=== PATIENT | male | born 1935 | race Caucasian/White ===

== ENCOUNTER 2019-08-26 09:37 | Outpatient (CLI) | payer MEDICARE, SELFPAY ==
--- NOTE | 2019-08-26 11:00 | NEURO_ITS ---
Patient Number: [id number] Impression: # Complains of severe numbness of right hand with obvious wasting of muscles. # Right severe Carpal Tunnel Syndrome. # Abnormal needle/EMG exam. 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 Nerve Conduction Studies Anti Sensory Summary Table Stim Site NR Peak (ms) P-T Amp (?V) Site1 Site2 Delta-P (ms) Dist (cm) Saúl (m/s) Left Median Anti Sensory (2-3nd Digit) Wrist 3.9 32.1 Wrist 2-3nd Digit 3.9 14.0 36 Wrist 3.5 30.7 Wrist 2-3nd Digit 3.9 14.0 36 Right Median Anti Sensory (2-3nd Digit) Wrist 6.4 33.9 Wrist 2-3nd Digit 6.4 14.0 22 Wrist 7.1 31.4 Wrist 2-3nd Digit 6.4 14.0 22 Left Radial Anti Sensory (Base 1st Digit) Wrist 2.7 24.0 Wrist Base 1st Digit 2.7 0.0 Right Radial Anti Sensory (Base 1st Digit) Wrist 3.2 25.4 Wrist Base 1st Digit 3.2 0.0 Left Ulnar Anti Sensory (5th Digit) Wrist 3.0 32.7 Wrist 5th Digit 3.0 14.0 47 Right Ulnar Anti Sensory (5th Digit) Wrist 3.0 6.5 Wrist 5th Digit 3.0 14.0 47 Motor Summary Table Stim Site NR Onset (ms) O-P Amp (mV) Site1 Site2 Delta-0 (ms) Dist (cm) Saúl (m/s) Left Median Motor (Abd Poll Brev) Wrist 3.9 2.2 Elbow Wrist 5.2 30.0 58 Elbow 9.1 2.2 Right Median Motor (Abd Poll Brev) Wrist 9.1 0.1 Elbow Wrist 5.7 27.0 47 Elbow 14.8 0.4 Left Ulnar Motor (Abd Dig Minimi) Wrist 3.0 4.0 A Elbow Wrist 5.6 30.0 54 A Elbow 8.6 3.7 Right Ulnar Motor (Abd Dig Minimi) Wrist 3.4 3.7 A Elbow Wrist 6.1 28.0 46 A Elbow 9.5 2.7 F Wave Studies NR F-Lat (ms) L-R F-Lat (ms) Left Median (Mrkrs) (Abd Poll Brev) 30.53 6.08 Right Median (Mrkrs) (Abd Poll Brev) 36.61 6.08 Left Ulnar (Mrkrs) (Abd Dig Min) 31.05 3.31 Right Ulnar (Mrkrs) (Abd Dig Min) 34.36 3.31 EMG Side Muscle Nerve Root Ins Act Fibs Amp Dur Recrt Comment Right 1stDorInt Ulnar C8-T1 Nml Nml Decr >12ms Reduced Right Ext Indicis Radial (Post Int) C7-8 Nml Nml Nml Nml Nml Right Ext Digitorum Radial (Post Int) C7-8 Nml Nml Nml Nml Nml Right BrachioRad Radial C5-6 Nml Nml Nml Nml Nml Right PronatorTeres Median C6-7 Nml Nml Nml Nml Nml Right Abd Poll Brev Median C8-T1 Nml 3+ Decr >12ms Reduced Left 1stDorInt Ulnar C8-T1 Nml Nml Decr >12ms Nml Left Ext Indicis Radial (Post Int) C7-8 Nml Nml Nml Nml Nml Left Ext Digitorum Radial (Post Int) C7-8 Nml Nml Nml Nml Nml Left BrachioRad Radial C5-6 Nml Nml Nml Nml Nml Left PronatorTeres Median C6-7 Nml Nml Nml Nml Nml Left Abd Poll Brev Median C8-T1 Nml Nml Nml Nml Nml Right ABD Dig Min Ulnar C8-T1 Nml Nml Decr >12ms Reduced Left ABD Dig Min Ulnar C8-T1 Nml Nml Nml Nml Nml MTDD
== END 2019-08-26 09:38 | disposition home or self-care (01) ==
PROVIDERS: PCP Internal Medicine; Visit Provider Physician Assistant Surgical
DX: M25.531 Pain in right wrist (principal); G56.01 Carpal tunnel syndrome, right upper limb; R94.131 Abnormal electromyogram [EMG]; G56.21 Lesion of ulnar nerve, right upper limb
CPT/HCPCS: 95886; 95911

== ENCOUNTER → 2019-10-13 10:02 | Outpatient (REF) | payer MEDICARE, SELFPAY | LOC: ANHLAB 10:02 | PROVIDERS: PCP Internal Medicine; Visit Provider Nurse Practitioner | DX: L57.0 Actinic keratosis (principal) | CPT/HCPCS: 88305 ==

== ENCOUNTER 2020-12-02 13:48 | Inpatient (IN) | payer MEDICARE, SELFPAY ==
[2020-12-02] VITALS (8 sets, daily range): BP systolic 128–170; BP diastolic 62–94; PULSE 60–75; RESP 16–20; TEMP 36.1–36.6; O2SAT 95–99; BMI 26.6
--- NOTE | ~2020-12-02 | US_ITS ---
US abdomen limited DATE: 12/02/2020 18:37 INDICATION: Right abdominal pain TECHNIQUE: Real-time imaging of liver, pancreas, gallbladder areas COMPARISON: 12/02/[address] abdomen pelvis FINDINGS: There are multiple stones in the dependent aspect of the gallbladder with associated shadow ing. There is mild gallbladder wall thickening. Positive sonographic Culver's sign. The common bile duct measures 3.8 mm, normal. No hepatic or pancreatic space occupying mass lesion is evident. IMPRESSION: Cholelithiasis, gallbladder wall thickening and positive sonographic Culver's sign, sugge sting acute cholecystitis Reviewed, dictated and finalized at [facility]. Reviewed, dictated and finalized at [facility]. IMPRESSION: Cholelithiasis, gallbladder wall thickening and positive sonographi c Culver's sign, suggesting acute cholecystitis
--- NOTE | ~2020-12-02 | CT_ITS ---
EXAMINATION: CT abdomen pelvis wo con DATE: 12/02/2020 17:32 INDICATION: Right flank pain. Nephrolithiasis. TECHNIQUE: Computed tomography (CT) of the abdomen and pelvis was performed without intravenous contr ast. Automated exposure control and iterative reconstruction technique were employed. The dose-length product was 284.42 mGy-cm. COMPARISON: 07/08/2005 FINDINGS: Lung bases are clear. Borderline heart size. Coronary artery disease with change of prior median ster notomy and coronary artery bypass grafting. No pericardial or pleural effusion. Multiple tiny gallstones layering in the dependent aspect of the normal-appearing gallbladder with no dilation, evident wall thickening or inflammatory stranding surrounding the fundus of the gallbladde r to suggest acute cholecystitis. There is however some inflammatory stranding at the naveen hepatis a nd about the head of the pancreas. Tiny calcification at the right naveen hepatis which could represen t either atherosclerotic calcific lesion or stone within the right hepatic duct. No gallstones eviden t within the common bile duct. Liver, spleen and bilateral adrenal glands are normal. Bilateral nephrolithiasis with 5 1-2 mm stones scattered throughout the left kidney and single 1 mm s tone at the lower pole of the right kidney. No stones along the bilateral ureters or in the partially decompressed bladder. No hydronephrosis. 10 mm left renal cyst. Extensive colonic diverticulosis without adjacent inflammatory change to suggest diverticulitis. Smal l bowel is normal with no obstruction. The appendix is not visualized. No pericecal inflammatory kay ge to suggest acute appendicitis. Prostatomegaly. No free intraperitoneal gas or fluid. No pathologic ally enlarged abdominal or pelvic lymphadenopathy. There is extensive calcified atherosclerosis of th e aorta and many of the other arteries. Thoracolumbar spondylosis with mild to moderate multilevel de generative disc disease and moderate to severe lower lumbar predominant facet osteoarthritis. There i s also moderate bilateral hip osteoarthritis. IMPRESSION: 1. Cholelithiasis with inflammatory stranding in the region of the naveen hepatis and about the head o f the pancreas. Differential includes acute pancreatitis, acute cholecystitis, biliary colic or duode nitis. Correlate with liver function tests and amylase and lipase levels. 2. Bilateral nonobstructing nephrolithiasis. No ureteral stones or hydronephrosis. 3. Extensive diverticulosis. 4. Mild cardiomegaly. 5. Prostatomegaly. Reviewed, dictated and finalized at [facility]. IMPRESSION: 1. Cholelithiasis with inflammatory stranding in the region of the naveen hepati s and about the head of the pancreas. Differential includes acute pancreatitis, acute cholecystitis, biliary colic or duodenitis. Correlate with liver functio n tests and amylase and lipase levels. 2. Bilateral nonobstructing nephrolithiasis. No ureteral stones or hydronephros is. 3. Extensive diverticulosis. 4. Mild cardiomegaly. 5. Prostatomegaly.
[2020-12-02 14:30] LABS: Basophils Absolute Auto 0.1 K/mm3 (0.0-0.1); Basophils Percent Auto 0.7 % (0.2-1.2); Eosinophils Absolute Auto 0.2 K/mm3 (0-0.3); Eosinophils Percent Auto 2.5 % (0-4.4); Hematocrit 46.6 % (42.0-52.0); Hemoglobin 15.1 g/dL (14.0-18.0); Immature Granulocyte Absolute 0.06 K/mm3 (0.00-0.031); Immature Granulocyte Percent A 0.8 % (0-0.5); Immature Platelet Fraction Pct 4.9 % (0.9-11.2); Lymphocytes Absolute Auto 1.64 K/mm3 (0.9-3.2); Lymphocytes Percent Auto 22.7 % (18.3-44.2); Mean Corpuscular HGB Conc 32.4 g/dl (32-36); Mean Corpuscular Hemoglobin 30.3 pg (26-34); Mean Corpuscular Volume 93.6 fl (80-100); Mean Platelet Volume 10.2 fl (7.4-10.4); Monocytes Absolute Auto 0.6 K/mm3 (0.1-0.6); Monocytes Percent Auto 8.3 % (2.6-8.5); Neutrophils Absolute Auto 4.7 K/mm3 (1.3-6.7); Platelet Count Result 144 k/mm3 (150-375); Red Blood Count 4.98 M/mm3 (4.6-6.20); Red Cell Distribution Width 15.2 % (11.5-14.5); White Blood Count 7.2 K/mm3 (4.5-10.0)
[2020-12-02 14:34] LABS: Anion Gap 7 mmol/L (8-16); Blood Urea Nitrogen 30 mg/dL (9-20); Calcium 9.4 mg/dL (8.4-10.2); Carbon Dioxide 26 mmol/L (22-30); Chloride 106 mmol/L (98-107); Estimated CRCL calculation 32 ml/min; Estimated Glomerular Filt Rate 48; Glucose 87 mg/dL (65-110); Potassium 4.6 mmol/L (3.4-5.0); Sodium 139 mmol/L (137-145)
--- NOTE | 2020-12-02 16:20 | ED.MALEGU ---
HPI - Male Genitourinary General Chief complaint: Urogenital-Male <Sylwia Anderson MD - Last Filed: 12/02/20 18:23> Stated complaint: kideny stones <Sylwia Anderson MD - Last Filed: 12/02/20 18:23> Time Seen by Provider: 12/02/20 16:02 <Sylwia Anderson MD - Last Filed: 12/02/20 18:23> Source: patient <Sylwia Anderson MD - Last Filed: 12/02/20 18:23> Mode of arrival: ambulatory <Sylwia Anderson MD - Last Filed: 12/02/20 18:23> Limitations: no limitations <Sylwia Anderson MD - Last Filed: 12/02/20 18:23> History of Present Illness HPI Narrative: Patient is an 85-year-old male with a history of hypertension, coronary artery disease, CABG, nephrolithiasis who presents for evaluation of right flank pain. At the time of my assessment, patient currently has no pain. He does report the pain has been quite constant over the past 4 days located in the right flank. No dysuria or hematuria. No radiation into the chest. No associated fever, chills, nausea, vomiting, chest pain or shortness of breath. Patient states the pain is sharp, stabbing in nature. No associated rash in that area. At this time, patient currently feels quite well. He denies any symptoms. Patient was at home with his . No recent heavy bending or lifting. <Sylwia Anderson MD - Last Filed: 12/02/20 18:23> Related Data Home medications: Home Medications Medication Instructions Recorded Confirmed apixaban 5 mg tablet 5 mg PO BID 08/20/19 lisinopril 5 mg tablet 5 mg PO DAILY 08/20/19 <Sylwia Anderson MD - Last Filed: 12/02/20 18:23> Allergies/Adverse reactions: Allergies Allergy/AdvReac Type Severity Reaction Status Date / Time No Known Allergies Allergy Unknown Verified 12/02/20 15:52 <Sylwia Anderson MD - Last Filed: 12/02/20 18:23> Review of Systems Review of Systems: CONSTITUTIONAL: Denies fever, chills, or sweats. EYES: Denies visual changes, redness, or discharge. ENT: Denies rhinorrhea, congestion, sore throat, or otalgia. CARDIOVASCULAR: Denies chest pain, palpitations, or edema. RESPIRATORY: Denies cough or dyspnea. GASTROINTESTINAL: Denies abdominal pain, nausea, vomiting, or diarrhea. GENITOURINARY: Denies dysuria or hematuria. SKIN: Denies rash or itching. MUSCULOSKELETAL: Denies back pain, flank pain resolved, joint pain, or myalgia. NEUROLOGIC: Denies headache, numbness, or weakness. <Sylwia Anderson MD - Last Filed: 12/02/20 18:23> [facility] Past Medical History Medical History: Medical History (Updated 12/02/20 @ 20:04 by Juve Arroyo MD) History of blood clots History of kidney stones Knee pain Skin neoplasm <Sylwia Anderson MD - Last Filed: 12/02/20 18:23> Surgical History Surgical History: Surgical History (Updated 12/02/20 @ 16:54 by Sylwia Anderson MD) History of back surgery History of shoulder surgery <Sylwia Anderson MD - Last Filed: 12/02/20 18:23> Social History Social History: Social History (Updated 12/02/20 @ 16:54 by Sylwia Anderson MD) Smoking status: Never smoker Alcohol intake: never Substance use: never Living arrangements: with family Gender identity (if verbalized by the patient): Male <Sylwia Anderson MD - Last Filed: 12/02/20 18:23> Exam Narrative: GENERAL: Awake, alert, conversant HEAD: Normocephalic, atraumatic. EYES: PERRLA and EOMI. ENT: Nares clear, no rhinorrhea or epistaxis. Mucous membranes moist. NECK: Supple. CHEST: No respiratory distress, breathing even and non labored HEART: Regular rate, sinus rhythm ABDOMEN:Non distended, non tender, no flank pain on exam EXTREMITIES: Normal range of motion. No edema. SKIN: Warm, dry, no rash. NEURO:No focal deficits. Alert and oriented x3 <Sylwia Anderson MD - Last Filed: 12/02/20 18:23> Course Course Emergency Course: Reviewed CT, and ultrasound consistent with acute cholecystitis Patient has only mild rig
[2020-12-02 17:21] LABS: Add Urine Microscopic? YES; Appearance Urine Clear (Clear); Bilirubin Urine Negative (Negative); Blood Urine Negative (Negative); Color Urine Yellow (Yellow); Glucose Urine UA Negative (Negative); Ketones Urine Negative (Negative); Leukocyte Esterase Ur Negative LEU/UL (Negative); Nitrate Urine Negative (Negative); Protein Urine Negative (Negative); Specific Grav Ur 1.025 (1.001-1.035); WBC Urine 0-3 /hpf
[2020-12-02 18:22] LABS: Alanine Aminotransferase 28 U/L (4-50); Albumin Level 4.1 g/dL (3.5-5.1); Alkaline Phosphatase 81 U/L (38-126); Aspartate Amino Transferase 33 U/L (17-59)
--- NOTE | 2020-12-02 19:34 | PC.NURSE ---
Pt to ED c/o right flank pain x approx. 3-4 days. denies urinary s/s. denies pain at present. call light in reach.
[2020-12-02 19:49] LABS: Lipase 70 U/L (23-300)
--- NOTE | 2020-12-02 22:26 | ADMGEN ---
This patient, Russ Kevin, was admitted to Medical Room [facility]- @ 4155. Patient/family oriented to hospital policies and general routines including ID bracelet, bed and alarms, visiting hours, pain management, procedures, bathroom and other care routines, personal items, smoking policy, room service/diet, and visiting hours. Information on how to activate the Rapid Response Team has been discussed. Patient/Family are encouraged to report perceived risks to care and to ask questions if they do not understand what they are told or what they should do.
[2020-12-02] MEDS: LACTATED RINGERS 1,000 ML 125 ML IV CONT (23:06)
--- NOTE | 2020-12-03 02:00 | PM.IMHP ---
H&P: HPI History of Present Illness Date/Time: 12/03/20 02:00 Chief Complaint: Abdominal pain Narrative: This is an 85-year-old male with past medical history significant for hypertension, atrial fibrillation, dyslipidemia. Patient presented to the emergency room due to abdominal pain had some nausea but no vomiting this has been going on for the last 3-4 days he denies any fevers any chills any rigors any diarrhea. He has been in his usual state of health up until this he denies any cough any sputum production shortness of breath leg swelling chest pain palpitations heartburn pain or burning with urination. Patient states that initially he thought he was passing a renal calculus. Pain is localized to the epigastric area also has had poor appetite Preliminary workup was significant for CT of abdomen and pelvis with cholelithiasis and right upper quadrant ultrasound shows positive more face on a graphic is signed and inflammatory signs. Patient has been admitted for further treatment management and evaluation. Review of Systems Review of Systems: Abdominal pain and nausea Constitutional: Constitutional: Denies chills, Denies fever(s) and Denies malaise Eyes: Eyes: Denies change in vision ENT: Denies dysphagia, Denies nasal congestion, Denies nasal discharge, Denies nasal obstruction and Denies odynophagia Cardiovascular: Cardiovascular: Denies irregular heart rhythm, Denies radiating jaw, neck or arm pain, Denies palpitations, Denies dyspnea on exertion and Denies orthopnea Respiratory: Respiratory: Denies cough and Denies dyspnea Gastrointestinal: Gastrointestinal: Reports abdominal pain, Denies diarrhea, Reports nausea and Denies vomiting Genitourinary: Genitourinary: Reports no additional male genitourinary complaints Musculoskeletal: Musculoskeletal: Reports no additional musculoskeletal complaints Integumentary/Breasts: Skin/Breast: Reports system reviewed and no additional complaints, except as docu Neurologic: Reports system reviewed and no additional complaints, except as documented Psychiatric: Psychiatric: Reports no additional psychiatric complaints Endocrine: Endocrine: Reports no additional endocrine complaints Hematologic/Lymphatic: Hematologic/Lymphatic: Reports no additional hematologic/lymphatic complaints Allergic/Immunologic: Allergic/Immunologic: Reports no additional allergic/immunologic complaints [facility] Past Medical History Medical History (Updated 12/03/20 @ 02:09 by Jeanie Penaloza MD) History of blood clots History of kidney stones Knee pain Skin neoplasm Surgical History Surgical History (Updated 12/02/20 @ 16:54 by Sylwia Anderson MD) History of back surgery History of shoulder surgery Family History Family History (Updated 12/02/20 @ 22:50 by Kimberly Portillo RN) Mother Diabetes mellitus Acute myocardial infarction Father Diabetes mellitus Acute myocardial infarction Social History Social History (Updated 12/02/20 @ 16:54 by Sylwia Anderson MD) Smoking status: Never smoker Alcohol intake: never Substance use: never Substance use type: does not use Living arrangements: with family Gender identity (if verbalized by the patient): Male Spiritual care concerns: No Meds Home Medications and Allergies Home Medications Medication Instructions Recorded Confirmed Type acetaminophen [Tylenol] 650 mg PO PRN PRN 12/02/20 12/02/20 History apixaban [Eliquis] 5 mg PO BID 12/02/20 12/02/20 History celecoxib 200 mg PO DAILY 12/02/20 12/02/20 History lisinopril 5 mg PO DAILY 12/02/20 12/02/20 History metoprolol succinate 25 mg PO DAILY 12/02/20 12/02/20 History pramipexole 0.5 mg PO QPM 12/02/20 12/02/20 History prednisolone acetate 1 drp EACH EYE BID 12/02/20 12/02/20 History simvastatin 5 mg PO QPM 12/02/20 12/02/20 History Allergies Allergy/AdvReac Type Severity Reaction Status Date / Time No Known Allergies Allergy Unknown Verified 12/02/20 2
--- NOTE | 2020-12-03 02:09 | ECG_ITS ---
Measurements Intervals [place] Rate: 65 P: RI: 0 QRS: 24 QRSD: 128 T: -7 QT: 425 QTc: 445 Interpretive Statements ATRIAL FIBRILLATION RIGHT BUNDLE BRANCH BLOCK CANNOT RULE OUT SEPTAL INFARCT, AGE INDETERMINATE ABNORMAL ECG Electronically Signed On 12-03-2020 10:09:22 CDT by Rafal Del Cid D.O.
[2020-12-03] MEDS: MORPHINE SULFATE (*CRX) 4 MG/ML INJ IV PUSH (05:01)
[2020-12-03 06:00] VITALS: BP 135/77; PULSE 72; RESP 16; TEMP 37.1; O2SAT 98
[2020-12-03 06:13] LABS: Basophils Absolute Auto 0.1 K/mm3 (0.0-0.1); Basophils Percent Auto 0.6 % (0.2-1.2); Eosinophils Absolute Auto 0.2 K/mm3 (0-0.3); Eosinophils Percent Auto 2.6 % (0-4.4); Hematocrit 45.2 % (42.0-52.0); Hemoglobin 14.8 g/dL (14.0-18.0); Immature Granulocyte Absolute 0.06 K/mm3 (0.00-0.031); Immature Granulocyte Percent A 0.7 % (0-0.5); Immature Platelet Fraction Pct 4.5 % (0.9-11.2); Lymphocytes Absolute Auto 1.66 K/mm3 (0.9-3.2); Lymphocytes Percent Auto 20.2 % (18.3-44.2); Mean Corpuscular HGB Conc 32.7 g/dl (32-36); Mean Corpuscular Hemoglobin 29.4 pg (26-34); Mean Corpuscular Volume 89.7 fl (80-100); Mean Platelet Volume 10.7 fl (7.4-10.4); Monocytes Absolute Auto 0.7 K/mm3 (0.1-0.6); Monocytes Percent Auto 8.4 % (2.6-8.5); Neutrophils Absolute Auto 5.5 K/mm3 (1.3-6.7); Neutrophils Percent Auto 67.5 % (45.5-73.1); Platelet Count Result 128 k/mm3 (150-375); Red Blood Count 5.04 M/mm3 (4.6-6.20); Red Cell Distribution Width 14.9 % (11.5-14.5); White Blood Count 8.2 K/mm3 (4.5-10.0)
[2020-12-03 06:35] LABS: Alanine Aminotransferase 24 U/L (4-50); Albumin Level 3.7 g/dL (3.5-5.1); Alkaline Phosphatase 70 U/L (38-126); Anion Gap 9 mmol/L (8-16); Aspartate Amino Transferase 28 U/L (17-59); Bilirubin,Total 2.2 mg/dL (0.2-1.3); Blood Urea Nitrogen 24 mg/dL (9-20); Calcium 8.9 mg/dL (8.4-10.2); Carbon Dioxide 21 mmol/L (22-30); Chloride 104 mmol/L (98-107); Estimated CRCL calculation 37 ml/min; Estimated Glomerular Filt Rate 57; Glucose 66 mg/dL (65-110); Lipase 96 U/L (23-300); Potassium 4.1 mmol/L (3.4-5.0); Sodium 134 mmol/L (137-145)
[2020-12-03 08:15] VITALS: PULSE 72
[2020-12-03] MEDS: lisinopriL 5 MG TABLET PO (08:15)
[2020-12-03] MEDS: METOPROLOL SUCCINATE EXT REL 25 MG TABCR PO (08:15)
[2020-12-03] MEDS: prednisoLONE ACETATE 1% OPHTH 5 ML 1 DROP EACH EYE ×2 (08:15→17:03)
[2020-12-03] MEDS: LACTATED RINGERS 1,000 ML 125 ML IV CONT (08:22)
--- NOTE | 2020-12-03 09:24 | PM.IMPN ---
Progress Note: A&P Assessment and Plan (1) Acute cholecystitis: Code(s): K81.0 - Acute cholecystitis Status: Acute Assessment and Plan: Presented with right-sided flank and back pain. CT abdomen/pelvis showed cholelithiasis with inflammatory stranding concerning for acute cholecystitis. Abdominal ultrasound also with cholelithiasis, gallbladder wall thickening, and positive sonographic Culver sign suggestive of acute cholecystitis. Total bilirubin slightly elevated today at 2.2. LFTs within normal limits, lipase within normal limits Appreciate general surgery consultation Patient is NPO Continue with IV fluids Continue IV Zosyn. Started on 12/02 Analgesics antiemetics available as needed. Supportive care. (2) Hypertension: Code(s): I10 - Essential (primary) hypertension Status: Acute Assessment and Plan: Blood pressures reviewed and were elevated on arrival up to 170s systolic. Improving today with last BP 135/77 Continue lisinopril and metoprolol Monitor BP trends (3) CAD (coronary artery disease): Code(s): I25.10 - Atherosclerotic heart disease of [place] coronary artery without angina pectoris Status: Acute Assessment and Plan: With history of CABG. Established with log getter Dr. Medina in [place]. Asymptomatic. No acute issues at this time. (4) Atrial fibrillation: Code(s): I48.91 - Unspecified atrial fibrillation Status: Acute Assessment and Plan: Echocardiogram reviewed showing atrial fibrillation with rate controlled at 65 Eliquis on hold. Awaiting surgery recommendations. Resume when clinically appropriate. Continue metoprolol succinate Subjective Date/time seen: 12/03/20 09:24 Interval history: Date of service: 12/03/2020 Russ Kevin is an 85-year-old male with history of kidney stones, atrial fibrillation on chronic anticoagulation, hypertension who is seen in follow-up for acute cholecystitis. His symptoms are slightly atypical. Reported his pain was constraints in his right back, and this felt difficult to when he has had kidney stones in the past. He never had right upper quadrant pain or epigastric pain. At this time, he is rating his right-sided back pain is 5/10. He also endorses abdominal bloating but notes this is significantly improved from yesterday. He is passing flatus and has had about 3 episodes of brown liquid stools today. Denies nausea or vomiting. Denies fever or chills. He does endorse leg cramps, which is common for him. Denies shortness of breath, cough, chest pain, or palpitations. Denies dizziness or lightheadedness. He is able to ambulate independently. Denies any urinary symptoms. He has been NPO and has not had anything to eat or drink today. Review of Systems Review of Systems: All systems reviewed & are unremarkable except as noted in HPI and below Exam Narrative: Mr. Kevin is a well-nourished, well-appearing 85-year-old male who is lying supine in bed. He appears comfortable and is in NARD. Neuro: awake, alert and oriented x4, speech clear, no focal neuro deficits noted HEENMT: normocephalic, atraumatic, EOMI, sclerae anicteric, moist oral mucosa Neck: supple, no lymphadenopathy Respiratory: clear to auscultation bilaterally, nonlabored breathing Cardio: regular rate, regular rhythm with S1-S2 Abdomen: nondistended, normoactive bowel sounds, soft, nontender to palpation, no RUQ tenderness, Culver sign negative, minimal tenderness of right lateral thorax : No CVA tenderness Extremities: no edema, erythema, or tenderness to palpation, DP pulses 2+ bilaterally Skin: no rashes or lesions, warm and dry Psych: appropriate mood and affect, judgment and insight intact Objective Data Vital Signs Vital Signs: Vital Signs - 24 hr 12/02/20 14:11 12/02/20 15:50 12/02/20 17:47 Temperature 97.7 F Pulse Rate 63 69 60 Respiratory Rate 18 20 20 Bloo
[2020-12-03 14:00] VITALS: BP 152/80; PULSE 75; RESP 18; TEMP 36.9; O2SAT 96
--- NOTE | 2020-12-03 14:29 | PM.CNGS ---
Assessment and Plan Assessment and plan (1) Cholelithiasis and cholecystitis without obstruction: Code(s): K80.10 - Calculus of gallbladder with chronic cholecystitis without obstruction Status: Acute Assessment and Plan: patient improved. Will go ahead and start low-fat diet. Continue to monitor closely with repeat labs and serial abdominal exam. I discussed with the patient and his that I would recommend proceeding with laparoscopic cholecystectomy on this admission. I discussed the procedure in detail. I discussed the usual recovery. I discussed that we would continue to hold his Eliquis and then resume it following the surgery usually a couple of days afterwards. I spoke with his son Hay on the telephone. His son revealed that both he and his sister have had cholecystectomy. Will continue to follow. (2) Atrial fibrillation: Code(s): I48.91 - Unspecified atrial fibrillation Status: Chronic Assessment and Plan: EKG does show atrial fib but by auscultation rhythm is pretty regular, certainly no rapid rhythm. (3) Chronic anticoagulation: Code(s): Z79.01 - correction (current) use of anticoagulants Status: Chronic Assessment and Plan: continue to hold Eliquis. Optimally, we would like him off of this for 48 hours before surgery. (4) Hx of CABG: Code(s): Z95.1 - Presence of aortocoronary bypass graft Status: Chronic History of Present Illness Consult details Consult date: 12/03/20 Reason for consult: gallstones Requesting physician: Juve Arroyo MD Narrative: patient is an 85-year-old man who came to the emergency room last night with a 4 day history of right CVA pain. The pains described as constant and he did have some nausea with it. It was sharp almost stabbing. He came to the emergency room where he was evaluated. His white blood cell count was normal at 7200. Liver enzymes lipase and UA were all normal as well. The patient had a CT scan of the abdomen and pelvis which showed multiple tiny gallstones with inflammatory stranding in the area of the naveen hepatocytes as well as the head of the pancreas. The gallbladder itself did not appear inflamed. However on ultrasound he was noted to have mild gallbladder wall thickening and a positive sonographic Culver sign. The patient was continuing to have off and on pain and was admitted. He was started on IV Zosyn antibiotics. He has felt better with no nausea for several hours. His last pain medication was at 4:00 a.m. in the morning which is now about 10 hours ago. He is seen now in consultation regarding right flank pain and probable cholecystitis with gallstones. He has never had pain like this before. Both his son and his daughter have had gallbladder surgery and gallbladder problems. Patient does have a cardiac history of previous coronary bypass graft, atrial fibrillation and he does take Eliquis. His last dose of Eliquis was yesterday morning. Review of Systems Review of Systems: All systems reviewed & are unremarkable except as noted in HPI and below Constitutional: Constitutional: Denies chills and Denies fever(s) Cardiovascular: Cardiovascular: Denies chest pain, Denies diaphoresis, Denies dyspnea and Denies paroxysmal nocturnal dyspnea Respiratory: Respiratory: Denies chest congestion, Denies cough and Denies dyspnea Integumentary/Breasts: Skin/Breast: Denies lesions and Denies rash PMFSH Past Medical History Medical History Atrial fibrillation History of blood clots History of kidney stones Knee pain Skin neoplasm Surgical History Surgical History History of back surgery History of shoulder surgery Family History Family History Mother Diabetes mellitus Acute myocardial infarction Father Diabetes mellitus Ac
[2020-12-03] MEDS: HYDROcodone/acetaminophen (*CRX) 7.5-325 MG TABLET 1 TAB PO (16:47)
[2020-12-03] MEDS: PRAMIPEXOLE 0.5 MG TABLET PO (17:03)
[2020-12-03] MEDS: ENOXAPARIN 40 MG/0.4 ML SYRINGE SUB-Q (17:03)
[2020-12-03] MEDS: SIMVASTATIN 5 MG TABLET PO (17:04)
[2020-12-03] MEDS: FAMOTIDINE 20 MG/2 ML VIAL IV PUSH (21:11)
[2020-12-03 21:49] VITALS: BP 119/72; PULSE 100; RESP 18; TEMP 36.9; O2SAT 95
[2020-12-04 06:00] VITALS: BP 110/76; PULSE 65; RESP 16; TEMP 36.6; O2SAT 97
[2020-12-04 06:12] LABS: Hematocrit 46.1 % (42.0-52.0); Hemoglobin 14.8 g/dL (14.0-18.0); Immature Platelet Fraction Pct 4.7 % (0.9-11.2); Mean Corpuscular HGB Conc 32.1 g/dl (32-36); Mean Corpuscular Hemoglobin 29.8 pg (26-34); Mean Corpuscular Volume 92.9 fl (80-100); Mean Platelet Volume 10.2 fl (7.4-10.4); Platelet Count Result 145 k/mm3 (150-375); Red Blood Count 4.96 M/mm3 (4.6-6.20); Red Cell Distribution Width 14.9 % (11.5-14.5)
[2020-12-04 06:24] LABS: Alanine Aminotransferase 22 U/L (4-50); Albumin Level 3.8 g/dL (3.5-5.1); Alkaline Phosphatase 65 U/L (38-126); Anion Gap 7 mmol/L (8-16); Aspartate Amino Transferase 32 U/L (17-59); Bilirubin,Total 1.7 mg/dL (0.2-1.3); Blood Urea Nitrogen 23 mg/dL (9-20); Calcium 8.8 mg/dL (8.4-10.2); Carbon Dioxide 25 mmol/L (22-30); Chloride 105 mmol/L (98-107); Estimated CRCL calculation 34 ml/min; Estimated Glomerular Filt Rate 52; Glucose 87 mg/dL (65-110); Potassium 4.3 mmol/L (3.4-5.0); Sodium 137 mmol/L (137-145)
[2020-12-04] MEDS: HYDROcodone/acetaminophen (*CRX) 7.5-325 MG TABLET 1 TAB PO (06:51)
[2020-12-04 08:59] VITALS: PULSE 65
[2020-12-04] MEDS: ENOXAPARIN 40 MG/0.4 ML SYRINGE SUB-Q (08:59)
[2020-12-04] MEDS: lisinopriL 5 MG TABLET PO (08:59)
[2020-12-04] MEDS: prednisoLONE ACETATE 1% OPHTH 5 ML 1 DROP EACH EYE ×2 (08:59→17:03)
[2020-12-04] MEDS: FAMOTIDINE 20 MG/2 ML VIAL IV PUSH ×2 (08:59→20:30)
[2020-12-04] MEDS: METOPROLOL SUCCINATE EXT REL 25 MG TABCR PO (08:59)
--- NOTE | 2020-12-04 11:27 | PM.PNGS ---
Progress Note: A&P Assessment and Plan (1) Cholelithiasis and cholecystitis without obstruction: Code(s): K80.10 - Calculus of gallbladder with chronic cholecystitis without obstruction Status: Acute Assessment and Plan: symptoms have recurred with eating. Discussed with patient. Will plan to go ahead with laparoscopic cholecystectomy tomorrow. I discussed the procedure again with him. All questions were answered. He understands and agrees to go ahead. (2) Chronic anticoagulation: Code(s): Z79.01 - care home (current) use of anticoagulants Status: Chronic Assessment and Plan: Reg remains on hold. Anticoagulant effects should be reversed by tomorrow. 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 bypass graft Status: Chronic Subjective Subjective Date/Time Seen: 12/04/20 11:27 Patient reports: still having pain ( Right flank pain and nausea returned with eating.), nausea and afebrile Review of Systems Review of Systems: All systems reviewed & are unremarkable except as noted in HPI and below Constitutional: Constitutional: Denies chills, Denies fever(s), Denies headache(s) and Reports poor appetite Cardiovascular: Cardiovascular: Denies chest pain and Denies dyspnea Respiratory: Respiratory: Denies cough and Denies dyspnea Gastrointestinal: Gastrointestinal: Reports as per HPI, Reports nausea and Reports other ( Right flank pain) Neurologic: Denies confusion and Denies headache(s) Exam Const: General: comfortable and no acute distress; No confusion Orientation/consciousness: patient oriented x3 and No confusion GI: Inspection: non-distended GI Palp: Yes Soft to palpation, Yes Tenderness to palpation present (GI) ( right upper quadrant), No Guarding due to palpation present (GI) and No Rebound tenderness present Auscultation: Hypoactive bowel sounds present Neuro: General: patient oriented x3, no focal motor deficits and No confusion Extrem: General: no calf tenderness and no edema Psych: Affect: normal affect Insight: Good insight present (Psych) Judgement: Good judgement present (Psych) Objective Data Vital Signs Vital Signs: Vital Signs - 24 hr 12/03/20 14:00 12/03/20 21:49 12/04/20 06:00 Temperature 36.9 C 36.9 C 36.6 C Pulse Rate 75 100 65 Respiratory Rate 18 18 16 Blood Pressure 152/80 H 119/72 110/76 Pulse Oximetry 96 95 97 12/04/20 08:59 Temperature Pulse Rate 65 Respiratory Rate Blood Pressure Pulse Oximetry Intake/Output Intake/Output: Intake & Output 12/01/20 12/02/20 12/03/20 12/04/20 23:59 23:59 23:59 23:59 Intake Total 50 3080 300 Output Total 400 Balance 50 2680 300 Meds/Results Medications: Active Medications Generic Name Dose Route Start Last Admin Trade Name Freq PRN Reason Stop Dose Admin Acetaminophen 650 mg 12/03/20 02:10 Acetaminophen 325 Mg Tablet PO Q4H PRN Pain Rated 1-3 Hydrocodone Bitart/Acetaminophen 1 tab 12/03/20 14:26 Hydrocodone/Acetaminophen (*Crx) 5-325 Mg Tablet PO Q4H PRN Pain Rated 4-6 Hydrocodone Bitart/Acetaminophen 1 tab 12/03/20 14:26 12/04/20 06:51 Hydrocodone/Acetaminophen (*Crx) 7.5-325 Mg Tablet PO 1 tab Q4H PRN Administration Pain Rated 7-10 Enoxaparin Sodium 40 mg 12/04/20 09:00 12/04/20 08:59 Enoxaparin 40 Mg/0.4 Ml Syringe SUB-Q 40 mg DAILY LISBET Administration Famotidine 20 mg 12/03/20 21:00 12/04/20 08:59 Famotidine 20 Mg/2 Ml Vial IV PUSH 20 mg Q12HR LISBET Administration Piperacillin/Tazobactam/Dextrose 3.375 gm in 50 mls @ 100 mls/hr 12/03/20 01:00 12/04/20 07:20 Zosyn 3.375 Gm/D5w 50ml Pm IVPB Infused Q6HR LISBET Infusion Lisinopril 5 mg 12/03/20 09:00 12/04/20 08:59 Lisinopril 5 Mg Tablet PO 5 mg DAILY LISBET Administration Metoprolol Succinat
--- NOTE | 2020-12-04 12:29 | WPDANESEPP ---
Anes - Eval Pre Procedure Procedure: Laparoscopic Cholecystectomy Date/Time: 12/04/20 12:29 Surgeon: Ramon Preop Diagnosis: Cholecystitis, cholelithiasis Pre Op Diagnosis: Acute Cholecystitis Patient Data Age: 85 Gender: M Height: 1.7 m Weight: 77 kg Last Vital Signs Temp 36.6 C 12/04/20 06:00 Pulse 65 12/04/20 08:59 Resp 16 12/04/20 06:00 BP 110/76 12/04/20 06:00 Pulse Ox 97 12/04/20 06:00 Allergies Allergy/AdvReac Type Severity Reaction Status Date / Time No Known Allergies Allergy Unknown Verified 12/02/20 22:41 Home Medications Medication Instructions Recorded Confirmed Type acetaminophen [Tylenol] 650 mg PO PRN PRN 12/02/20 12/02/20 History apixaban [Eliquis] 5 mg PO BID 12/02/20 12/02/20 History celecoxib 200 mg PO DAILY 12/02/20 12/02/20 History lisinopril 5 mg PO DAILY 12/02/20 12/02/20 History metoprolol succinate 25 mg PO DAILY 12/02/20 12/02/20 History pramipexole 0.5 mg PO QPM 12/02/20 12/02/20 History prednisolone acetate 1 drp EACH EYE BID 12/02/20 12/02/20 History simvastatin 5 mg PO QPM 12/02/20 12/02/20 History Laboratory Tests 12/04/20 12/04/20 05:31 05:31 WBC 9.0 K/mm3 K/mm3 (4.5-10.0) RBC 4.96 M/mm3 M/mm3 (4.6-6.20) Hgb 14.8 g/dL g/dL (14.0-18.0) Hct 46.1 % % (42.0-52.0) MCV 92.9 fl fl (80-100) MCH 29.8 pg pg (26-34) MCHC 32.1 g/dl g/dl (32-36) RDW 14.9 % H % (11.5-14.5) Plt Count 145 k/mm3 L k/mm3 (150-375) MPV 10.2 fl fl (7.4-10.4) % Immature Plt Fraction 4.7 % % (0.9-11.2) Sodium 137 mmol/L mmol/L (137-145) Potassium 4.3 mmol/L mmol/L (3.4-5.0) Chloride 105 mmol/L mmol/L (98-107) Carbon Dioxide 25 mmol/L mmol/L (22-30) Anion Gap 7 mmol/L L mmol/L (8-16) BUN 23 mg/dL H mg/dL (9-20) Creatinine 1.30 mg/dL mg/dL (0.7-1.3) Estim Creat Clear Calc 34 ml/min ml/min Estimated GFR 52 L (59 - ) Glucose 87 mg/dL mg/dL (65-110) Calcium 8.8 mg/dL mg/dL (8.4-10.2) Total Bilirubin 1.7 mg/dL H mg/dL (0.2-1.3) AST 32 U/L U/L (17-59) ALT 22 U/L U/L (4-50) Alkaline Phosphatase 65 U/L U/L (38-126) Total Protein 6.0 g/dL L g/dL (6.3-8.2) Albumin 3.8 g/dL g/dL (3.5-5.1) ECG: AFib 65, RBBB Patient hx anesthesia problems: none Family hx anesthesia problems: none PMFSH Past Medical History Medical History Atrial fibrillation History of blood clots History of kidney stones Hx of CABG Knee pain Skin neoplasm Surgical History Surgical History History of back surgery History of shoulder surgery Family History Family History Mother Diabetes mellitus Acute myocardial infarction Father Diabetes mellitus Acute myocardial infarction Social History Social History Smoking status: Never smoker Alcohol intake: never Substance use: never Substance use type: does not use Living arrangements: with family Gender identity (if verbalized by the patient): Male Spiritual care concerns: No Exam Day of Procedure 12/04/20 12:29
[2020-12-04 13:44] VITALS: BP 109/66; PULSE 69; RESP 18; TEMP 36.8; O2SAT 98
--- NOTE | 2020-12-04 14:03 | PM.IMPN ---
Progress Note: A&P Assessment and Plan (1) Acute cholecystitis: Code(s): K81.0 - Acute cholecystitis Status: Deleted Assessment and Plan: Presented with right-sided flank and back pain. CT abdomen/pelvis showed cholelithiasis with inflammatory stranding concerning for acute cholecystitis. Abdominal ultrasound also with cholelithiasis, gallbladder wall thickening, and positive sonographic Culver sign suggestive of acute cholecystitis. Total bilirubin 1.7. LFTs within normal limits, lipase within normal limits Appreciate general surgery consultation Plan for laparoscopic cholecystectomy tomorrow Dr. Navarro Continue low-fat diet. NPO at midnight Continue IV Zosyn. Started on 08 Analgesics and antiemetics available as needed. Supportive care. (2) Hypertension: Code(s): I10 - Essential (primary) hypertension Status: Acute Assessment and Plan: Blood pressures reviewed and were elevated on arrival up to 170s systolic. Improving today with last BP 109/66 Continue lisinopril and metoprolol Monitor BP trends (3) CAD (coronary artery disease): Code(s): I25.10 - Atherosclerotic heart disease of [place] coronary artery without angina pectoris Status: Acute Assessment and Plan: With history of CABG. Established with major account manager Dr. Medina in [place]. Asymptomatic. No acute issues at this time. (4) Atrial fibrillation: Code(s): I48.91 - Unspecified atrial fibrillation Status: Chronic Assessment and Plan: Echocardiogram reviewed showing atrial fibrillation with rate controlled at 69 Eliquis on hold perioperatively. Last dose was 8/20 AM Continue metoprolol succinate (5) Nephrolithiasis: Code(s): N20.0 - Calculus of kidney Status: Acute Assessment and Plan: CT shows bilateral nonobstructing nephrolithiasis. He complains of right flank and back pain and has right-sided CVA tenderness. The symptoms are most likely to be related to acute cholecystitis and unlikely to be due to nonobstructing nephrolithiasis. No ureteral stones or hydronephrosis noted on CT. Monitor clinically. Anticipate resolution of flank pain following cholecystectomy. Pursue further workup if flank pain or CVA tenderness persists postoperatively. Subjective Date/time seen: 12/04/20 14:03 Interval history: Date of service: 12/03/2020 Russ Kevin is an 85-year-old male with history of kidney stones, atrial fibrillation on chronic anticoagulation, hypertension who is seen in follow-up for acute cholecystitis. He is complaining of pain in the right flank and back as before, but states his pain is worse today. Currently rating as 7/10 for reports that has been up to 10/10 today. He does not notice anything that worsens the pain. Did not notice any change in symptoms with meals. He tolerated his lunch today. No bowel movements today. Denies fever or chills. No nausea or vomiting. No dizziness, lightheadedness, shortness breath, cough, chest pain, or palpitations. His is present at the bedside during interview and examination Review of Systems Review of Systems: All systems reviewed & are unremarkable except as noted in HPI and below Exam Narrative: Mr. Kevin is a well-nourished, well-appearing 85-year-old male who is lying supine in bed. He appears comfortable and is in NARD. Neuro: awake, alert and oriented x4, speech clear, no focal neuro deficits noted HEENMT: normocephalic, atraumatic, EOMI, sclerae anicteric, moist oral mucosa Neck: supple, no lymphadenopathy Respiratory: clear to auscultation bilaterally, nonlabored breathing Cardio: regular rate, regular rhythm with S1-S2 Abdomen: nondistended, normoactive bowel sounds, soft, nontender to palpation, no RUQ tenderness, Culver sign negative, : Right-sided CVA tenderness Extremities: no edema, erythema, or tenderness to palpation, DP pulses 2+ bilaterally S
[2020-12-04] MEDS: PRAMIPEXOLE 0.5 MG TABLET PO (17:03)
[2020-12-04] MEDS: SIMVASTATIN 5 MG TABLET PO (17:03)
[2020-12-04 21:41] VITALS: BP 152/83; PULSE 60; RESP 16; TEMP 36.9; O2SAT 100
[2020-12-05] VITALS (16 sets, daily range): BP systolic 112–165; BP diastolic 72–94; PULSE 58–98; RESP 14–20; TEMP 36.1–36.8; O2SAT 93–100
[2020-12-05] MEDS: MORPHINE SULFATE (*CRX) 2 MG/ML INJ 1 MG IV PUSH (05:57)
[2020-12-05] MEDS: CHLORHEXIDINE GLUCONATE 4% SOL 120 ML BTL 1 APPLIC TOPICAL (05:57)
[2020-12-05 06:04] LABS: Hematocrit 44.4 % (42.0-52.0); Hemoglobin 14.7 g/dL (14.0-18.0); Immature Platelet Fraction Pct 4.8 % (0.9-11.2); Mean Corpuscular HGB Conc 33.1 g/dl (32-36); Mean Corpuscular Hemoglobin 30.3 pg (26-34); Mean Corpuscular Volume 91.5 fl (80-100); Mean Platelet Volume 10.5 fl (7.4-10.4); Platelet Count Result 146 k/mm3 (150-375); Red Blood Count 4.85 M/mm3 (4.6-6.20); Red Cell Distribution Width 14.7 % (11.5-14.5); White Blood Count 7.5 K/mm3 (4.5-10.0)
[2020-12-05 06:11] LABS: Alanine Aminotransferase 22 U/L (4-50); Albumin Level 3.9 g/dL (3.5-5.1); Alkaline Phosphatase 59 U/L (38-126); Anion Gap 7 mmol/L (8-16); Aspartate Amino Transferase 31 U/L (17-59); Bilirubin,Total 1.7 mg/dL (0.2-1.3); Blood Urea Nitrogen 19 mg/dL (9-20); Carbon Dioxide 25 mmol/L (22-30); Chloride 105 mmol/L (98-107); Estimated CRCL calculation 30 ml/min; Estimated Glomerular Filt Rate 44; Glucose 81 mg/dL (65-110); Lipase 61 U/L (23-300); Sodium 137 mmol/L (137-145)
[2020-12-05] MEDS: FAMOTIDINE 20 MG/2 ML VIAL IV PUSH ×2 (08:10→21:04)
[2020-12-05] MEDS: lisinopriL 5 MG TABLET PO (08:10)
[2020-12-05] MEDS: prednisoLONE ACETATE 1% OPHTH 5 ML 1 DROP EACH EYE ×2 (08:10→17:31)
[2020-12-05] MEDS: METOPROLOL SUCCINATE EXT REL 25 MG TABCR PO (08:10)
[2020-12-05] MEDS: ENOXAPARIN 40 MG/0.4 ML SYRINGE SUB-Q (08:10)
--- NOTE | 2020-12-05 08:41 | PC.NURSE ---
To OR per stretcher, IV saline locked.
[2020-12-05] MEDS: LACTATED RINGERS 1,000 ML 30 ML IV CONT ×2 (09:00→11:45)
--- NOTE | 2020-12-05 10:07 | WPDHPUPDATE1 ---
History and Physical Update Update Date/Time: 12/05/20 10:07 History and Physical has been reviewed, including an updated exam of the patient. There are NO changes in the patient's condition. Risks, benefits, and alternatives have been discussed and questions answered. Patient agrees to proceed with procedure.
--- NOTE | 2020-12-05 10:07 | WPDANESEFPP ---
Anes - Eval Final PreProcedure Day of Procedure 12/05/20 10:07 Patient weight: overweight Heart: regular rate and rhythm Lungs: clear to auscultation and normal air movement Airway: Mallampati scale class III Neurological: alert and oriented Last oral intake: >/= 8 hours ASA classification: III Emergent: no Anesthetic plan: proceed Anesthesia type and monitoring: general ETT and standard monitoring Informed Consent: The patient's anesthetic plan and its attendant risks and benefits were discussed with the patient/family/POA. Questions were solicited and answers provided to the satisfaction of the patient/family/POA.
[2020-12-05] MEDS: BUPIVACAINE/EPINEPHRINE 0.5% 30 ML VIAL 20 ML INFILTRATE (11:14)
--- NOTE | 2020-12-05 11:32 | P.OP_ITS ---
Procedure Note - Detailed Date of Procedure 12/05/20 Pre-op Diagnosis Chronic cholecystitis with cholelithiasis Post-op Diagnosis other (Acute on chronic cholecystitis, cholelithiasis) Procedure Performed Laparoscopic cholecystectomy Surgeon Odin Navarro MD [employer] PASTRANA Anesthesia general and local (0.5% Marcaine with epinephrine) Indications Patient is an 85-year-old man who came to the emergency room with a 4 day history of right flank abdominal pain with nausea. He had a normal white count but ultrasound showed multiple gallstones with gallbladder wall thickening and a positive sonographic Culver sign. Although he improved briefly, his symptoms returned yesterday. He is taken to surgery now for cholecystitis. Findings He had acute inflammation and hypervascularity associated with gallbladder wall thickening and multiple pigmented stones. No biliary ductal dilatation was noted. Liver had some fatty changes but was otherwise normal Description of Procedure Patient was taken to surgery and induced into general anesthesia. The abdomen prepped and draped. Trocars were placed in the usual fashion using 0.5% Marcaine with epinephrine an applied Medical optical trocars. A 5 mm camera was used. The gallbladder was freed from some surrounding omental adhesions. It was then decompressed with a laparoscopic aspirator. The cholecystotomy was closed with a Vicryl endoloop. The gallbladder was then retracted anterosuperiorly. Additional adhesions were taken down and eventually the infundibulum was exposed. The cholecystohepatic triangle was very inflamed and hypervascular. All dissection in this area resulted in oozing of blood. The surgery was more bloody than usual due to the inflammation and the fact that the patient does take Eliquis. Using suction and careful dissection, we were ventrally able to dissect the cystic duct and cystic artery. The gallbladder was dissected off the liver at its lower 3rd. Critical view was able to be achieved. The cystic artery was securely clipped and divided. We further dissected more of the cystic duct and then securely clipped and divided it. From there we gently dissected the gallbladder from its attachments to the liver. At the very fundus of the gallbladder there was some bleeding of the liver edge which was cauterized. The gallbladder was placed in an Endo-Catch bag in retrieved through the 10 11 epigastric trocar site. The epigastric trocar was then replaced. We exposed the gallbladder fossa and right upper quadrant. Additional cautery was used on the gallbladder fossa to achieve good hemostasis. Then repeated and prolonged irrigation and suctioning were carried out until the right upper quadrant was very clean with really no evidence of bleeding and no bile leak seen. All looked very good. We evacuated CO2 and removed the trocar sleeves. The fascia at the epigastric trocar site was closed with a [id number] mattress suture of 0 Vicryl. The subcutaneous was closed with 3 0 Vicryl. All skin wounds were closed with a running 4-0 Monocryl skin suture. The wounds were dressed with Exofin surgical adhesive. The patient was awakened and taken to recovery in good condition. Sponge and needle counts were correct x2. Estimated Blood Loss 100 Urine Output 400 Drains No Packing No Pathology yes (Gallbladder) Complications None Condition stable Disposition PACU
[2020-12-05] MEDS: fentaNYL CITRATE INJ (*CRX) 100 MCG/2 ML VIAL 25 MCG IV PUSH ×4 (12:08→12:30)
[2020-12-05] MEDS: LACTATED RINGERS 1,000 ML 80 ML IV CONT (14:19)
--- NOTE | 2020-12-05 16:02 | PM.IMPN ---
Progress Note: A&P Assessment and Plan (1) Acute cholecystitis: Code(s): K81.0 - Acute cholecystitis Status: Deleted Assessment and Plan: Presented with right-sided flank and back pain. CT abdomen/pelvis showed cholelithiasis with inflammatory stranding concerning for acute cholecystitis. Abdominal ultrasound also with cholelithiasis, gallbladder wall thickening, and positive sonographic Culver sign suggestive of acute cholecystitis. Total bilirubin 1.7. LFTs within normal limits, lipase within normal limits Appreciate general surgery consultation Underwent laparoscopic cholecystectomy this afternoon, performed by Dr. Navarro Advance diet postoperatively per General surgery Continue IV Zosyn. Appreciate general surgery recommendations regarding duration of antibiotics. Started on 8. Analgesics and antiemetics available as needed. Supportive care. (2) Hypertension: Code(s): I10 - Essential (primary) hypertension Status: Acute Assessment and Plan: Blood pressures reviewed and were elevated on arrival up to 170s systolic. Improving today with last BP 145/92 Continue lisinopril and metoprolol Monitor BP trends (3) CAD (coronary artery disease): Code(s): I25.10 - Atherosclerotic heart disease of [place] coronary artery without angina pectoris Status: Acute Assessment and Plan: With history of CABG. Established with [facility] Dr. Medina in [place]. Asymptomatic. No acute issues at this time. (4) Atrial fibrillation: Code(s): I48.91 - Unspecified atrial fibrillation Status: Chronic Assessment and Plan: Echocardiogram reviewed showing atrial fibrillation with rate controlled Eliquis on hold perioperatively. Last dose was 8/20 AM. Resume when okay from surgical standpoint Continue metoprolol succinate Subjective Date/time seen: 12/05/20 16:02 Interval history: Date of service: 12/05/2020 Russ Kevin is an 85-year-old male with history of kidney stones, atrial fibrillation on chronic anticoagulation, hypertension who is seen in follow-up for acute cholecystitis. He is now s/p cholecystectomy performed today. He is a little groggy following anesthesia put is able to answer all questions appropriately. He denies abdominal pain. No nausea or vomiting. Denies shortness of breath or chest pain. His is present in the room and notes that he has tried to get out of bed a couple of times but she is able to redirect him. Review of Systems Review of Systems: All systems reviewed & are unremarkable except as noted in HPI and below Exam Narrative: Mr. Kevin is a well-nourished, well-appearing 85-year-old male who is lying supine in bed. He appears comfortable and is in NARD. Neuro: awake, alert and oriented to self and location, can state month but not year, speech clear, no focal neuro deficits noted HEENMT: normocephalic, atraumatic, EOMI, sclerae anicteric, moist oral mucosa Neck: supple, no lymphadenopathy Respiratory: clear to auscultation anteriorly, nonlabored breathing Cardio: regular rate, regular rhythm with S1-S2 Abdomen: nondistended, normoactive bowel sounds, soft, nontender to palpation, no RUQ tenderness, surgical incisions well approximated Extremities: no edema, erythema, or tenderness to palpation, DP pulses 2+ bilaterally Skin: no rashes or lesions, warm and dry Psych: appropriate mood and affect, judgment and insight fair Objective Data Vital Signs Vital Signs: Vital Signs - 24 hr 12/04/20 21:41 12/05/20 05:57 12/05/20 08:10 Temperature 98.4 F 97.7 F Pulse Rate 60 70 86 Respiratory Rate 16 16 Blood Pressure 152/83 H 121/78 Pulse Oximetry 100 95 12/05/20 08:53 12/05/20 11:45 12/05/20 12:00 Temperature 97.9 F 96.9 F L Pulse Rate 63 98 72 Respiratory Rate 20 18 20 Blood Pressure 125/91 H 148/83 H 165/81 H Pulse Oximetry 98 100 100 12/05/20 12:15 12/05/20 12:30
[2020-12-05] MEDS: SIMVASTATIN 5 MG TABLET PO (17:31)
[2020-12-05] MEDS: PRAMIPEXOLE 0.5 MG TABLET PO (17:31)
[2020-12-05] MEDS: HYDROcodone/acetaminophen (*CRX) 7.5-325 MG TABLET 1 TAB PO (17:31)
[2020-12-06] MEDS: LACTATED RINGERS 1,000 ML 80 ML IV CONT (03:39)
[2020-12-06] MEDS: HYDROcodone/acetaminophen (*CRX) 7.5-325 MG TABLET 1 TAB PO (03:42)
[2020-12-06 05:38] VITALS: BP 141/76; PULSE 65; RESP 16; TEMP 36.8; O2SAT 95
[2020-12-06 05:56] LABS: Hematocrit 41.4 % (42.0-52.0); Hemoglobin 13.9 g/dL (14.0-18.0); Mean Corpuscular HGB Conc 33.6 g/dl (32-36); Mean Corpuscular Volume 89.2 fl (80-100); Mean Platelet Volume 10.1 fl (7.4-10.4); Platelet Count Result 154 k/mm3 (150-375); Red Blood Count 4.64 M/mm3 (4.6-6.20); Red Cell Distribution Width 14.6 % (11.5-14.5); White Blood Count 8.1 K/mm3 (4.5-10.0)
[2020-12-06 06:14] LABS: Anion Gap 7 mmol/L (8-16); Blood Urea Nitrogen 20 mg/dL (9-20); Calcium 8.6 mg/dL (8.4-10.2); Carbon Dioxide 23 mmol/L (22-30); Chloride 106 mmol/L (98-107); Estimated CRCL calculation 37 ml/min; Estimated Glomerular Filt Rate 57; Glucose 114 mg/dL (65-110); Potassium 4.3 mmol/L (3.4-5.0); Sodium 136 mmol/L (137-145)
[2020-12-06 08:52] VITALS: PULSE 84
[2020-12-06] MEDS: ENOXAPARIN 40 MG/0.4 ML SYRINGE SUB-Q (08:52)
[2020-12-06] MEDS: prednisoLONE ACETATE 1% OPHTH 5 ML 1 DROP EACH EYE (08:52)
[2020-12-06] MEDS: METOPROLOL SUCCINATE EXT REL 25 MG TABCR PO (08:52)
[2020-12-06] MEDS: FAMOTIDINE 20 MG/2 ML VIAL IV PUSH (08:53)
--- NOTE | 2020-12-06 10:25 | WPDANESPN ---
Anes - Prog Note Post-Op Date/Time: 12/06/20 10:25 Cardiovascular status: normal Respiratory status: normal Airway patency: baseline Mental status: baseline Post-Op hydration status: normal Vital Signs: Last Vital Signs Temp 36.8 C 12/06/20 05:38 Pulse 84 12/06/20 08:52 Resp 16 12/06/20 05:38 BP 141/76 H 12/06/20 05:38 Pulse Ox 95 12/06/20 05:38 Pain Score (VAS): 3 I/O: Intake & Output 12/05/20 12/06/20 12/06/20 23:59 07:59 15:59 Intake Total 270 1250 240 Output Total 175 600 Balance 95 650 240 Laboratory Tests 12/06/20 05:23 12/06/20 05:23 12/06/20 12/06/20 05:23 05:23 WBC 8.1 RBC 4.64 Hgb 13.9 L Hct 41.4 L MCV 89.2 MCH 30.0 MCHC 33.6 RDW 14.6 H Plt Count 154 MPV 10.1 Sodium 136 L Potassium 4.3 Chloride 106 Carbon Dioxide 23 Anion Gap 7 L BUN 20 Creatinine 1.20 Estim Creat Clear Calc 37 Estimated GFR 57 L Glucose 114 H Calcium 8.6 Post-procedural complaints: none Patient Feedback: Patient satisfied with anesthetic care.
--- NOTE | 2020-12-06 10:46 | PM.PNGS ---
Progress Note: A&P Assessment and Plan (1) Cholelithiasis and cholecystitis without obstruction: Code(s): K80.10 - Calculus of gallbladder with chronic cholecystitis without obstruction Status: Acute Assessment and Plan: Doing very well after lap choly yesterday. Okay to discharge on Augmentin antibiotics for few more days. He can restart his Eliquis Saturday12/08/2020. Explained his discharge instructions. I will see him in the office in 2 weeks. (2) Chronic anticoagulation: Code(s): Z79.01 - detention (current) use of anticoagulants Status: Chronic Assessment and Plan: Restart Eliquis on Saturday Subjective Subjective Date/Time Seen: 12/06/20 10:46 Post Op day: 1 Patient reports: feels better, pain is less, tolerating liquids well, voiding w/o difficulty and afebrile Exam Const: General: comfortable and no acute distress; No confusion Orientation/consciousness: patient oriented x3 and No confusion GI: Inspection: incision (All incisions healing well) GI Palp: Yes Soft to palpation, Yes Tenderness to palpation present (GI) (Minimal tenderness), No Guarding due to palpation present (GI) and No Rebound tenderness present Auscultation: normal bowel sounds Neuro: General: patient oriented x3, no focal motor deficits and No confusion Extrem: General: no calf tenderness and no edema Psych: Affect: normal affect Insight: Good insight present (Psych) Judgement: Good judgement present (Psych) Objective Data Vital Signs Vital Signs: Vital Signs - 24 hr 12/05/20 11:45 12/05/20 12:00 12/05/20 12:15 Temperature 36.1 C L Pulse Rate 98 72 69 Respiratory Rate 18 20 17 Blood Pressure 148/83 H 165/81 H 157/94 H Pulse Oximetry 100 100 100 12/05/20 12:30 12/05/20 12:45 12/05/20 13:15 Temperature 36.3 C L Pulse Rate 63 63 76 Respiratory Rate 18 16 16 Blood Pressure 126/82 125/79 112/72 Pulse Oximetry 96 97 98 12/05/20 13:30 12/05/20 14:00 12/05/20 15:00 Temperature 36.1 C L 36.4 C 36.3 C L Pulse Rate 66 58 L 67 Respiratory Rate 14 16 18 Blood Pressure 133/83 142/72 H 145/92 H Pulse Oximetry 96 98 93 12/05/20 17:04 12/05/20 18:01 12/05/20 20:00 Temperature 36.6 C Pulse Rate 71 81 Respiratory Rate 18 20 Blood Pressure 152/89 H Pulse Oximetry 94 96 96 12/05/20 21:24 12/06/20 05:38 12/06/20 08:52 Temperature 36.8 C 36.8 C Pulse Rate 81 65 84 Respiratory Rate 20 16 Blood Pressure 133/73 141/76 H Pulse Oximetry 96 95 Intake/Output Intake/Output: Intake & Output 12/03/20 12/04/20 12/05/20 12/06/20 23:59 23:59 23:59 23:59 Intake Total 3080 9433 035 5497 Output Total 400 575 600 Balance 2680 1620 95 890 Meds/Results Medications: Active Medications Generic Name Dose Route Start Last Admin Trade Name Freq PRN Reason Stop Dose Admin Acetaminophen 500 mg 12/05/20 12:56 Acetaminophen 500 Mg Tablet PO Q6H PRN Mild Pain (1-3) or Fever Hydrocodone Bitart/Acetaminophen 1 tab 12/03/20 14:26 Hydrocodone/Acetaminophen (*Crx) 5-325 Mg Tablet PO Q4H PRN Pain Rated 4-6 Hydrocodone Bitart/Acetaminophen 1 tab 12/03/20 14:26 12/06/20 03:42 Hydrocodone/Acetaminophen (*Crx) 7.5-325 Mg Tablet PO 1 tab Q4H PRN Administration Pain Rated 7-10 Enoxaparin Sodium 40 mg 12/04/20 09:00 12/06/20 08:52 Enoxaparin 40 Mg/0.4 Ml Syringe SUB-Q 40 mg DAILY LISBET Administration Famotidine 20 mg 12/03/20 21:00 12/06/20 08:53 Famotidine 20 Mg/2 Ml Vial IV PUSH 20 mg Q12HR LISBET Administration Piperacillin/Tazobactam/Dextrose 3.375 gm in 50 mls @ 100 mls/hr 12/03/20 01:00 12/06/20 05:54 Zosyn 3.375 Gm/D5w 50ml Pm IVPB Infused Q6HR LISBET Infusion Lisinopril 5 mg 12/03/20 09:00 12/05/20 08:10 Lisinopril 5 Mg Tablet PO 5 mg DAILY LISBET Administration Metoprolol Succinate 25 mg 12/03/20 09:00 12/06/20 08:52 Metoprolol Succinate Ext Rel 25 Mg Tabcr PO 25 mg DAILY LISBET Adm
--- NOTE | 2020-12-06 15:59 | PM.DS ---
DS: Admitting Diagnosis Admitting Diagnosis Abdominal pain DS: Discharge Diagnosis Discharge Diagnosis (1) Acute cholecystitis: Code(s): K81.0 - Acute cholecystitis Status: Deleted Assessment and Plan: Appreciate general surgery consultation S/p laparoscopic cholecystectomy on 12/05, performed by Dr. Navarro Tolerating po S/p IV Zosyn Home on Augmentin (2) Hypertension: Code(s): I10 - Essential (primary) hypertension Status: Acute Assessment and Plan: Stable Continue lisinopril and metoprolol (3) CAD (coronary artery disease): Code(s): I25.10 - Atherosclerotic heart disease of [place] coronary artery without angina pectoris Status: Acute Assessment and Plan: With history of CABG. Established with putty mixer Dr. Medina in [place] (4) Atrial fibrillation: Code(s): I48.91 - Unspecified atrial fibrillation Status: Chronic Assessment and Plan: Echocardiogram reviewed showing atrial fibrillation with rate controlled Eliquis on hold perioperatively. Last dose was 8/20 AM. Resume on 12/08 Continue metoprolol succinate DS: Summary Hospital Course Hospital Course: This is an 85-year-old male with past medical history significant for hypertension, atrial fibrillation, dyslipidemia. Patient presented to the emergency room due to abdominal pain had some nausea but no vomiting x3-4 days. He denied any fevers any chills any rigors any diarrhea. He had been in his usual state of health up until admission to ED. Patient initially he thought he was passing a renal calculus. Pain was localized to the epigastric area. He also has had poor appetite. Preliminary workup was significant for CT of abdomen and pelvis with cholelithiasis and right upper quadrant ultrasound shows positive Culver's sign. Patient was admitted for further treatment management and evaluation. He underwent laparoscopic cholecystectomy on 12/05/2020. He tolerated the procedure well and is recovering without complications. He will be discharged on Augmentin for a few more days. He has been given instruction to resume Eliquis on 12/08/2020. He will follow up with general surgery in 2 weeks. He has been advised to schedule a follow up appointment with his PCP within 2 weeks. Time Spent with Patient Time attestation: Total time spent providing and/or coordinating discharge services: Exam Const: General: no acute distress, alert and awake Orientation/consciousness: patient oriented x3 HENMT: Head: normocephalic and atraumatic Ears: hearing grossly normal bilaterally and external ears normal Face and sinus: face symmetric Mouth: Yes Normal oral and palatal mucosa present Eyes: Pupils: Equal, round and reactive pupils present Neck: Neck: full ROM and trachea midline Chest: Chest palpation & inspection: normal inspection of the chest Resp: Effort & Inspection: normal respiratory effort Auscultation: clear to auscultation bilaterally Cardio: Rate: regular rate Heart sounds: S1 normal heart sound present and S2 normal heart sound present GI: Inspection: normal to inspection GI Palp: Yes Soft to palpation Percussion: Yes normal to percussion Auscultation: normal bowel sounds : General: Yes no CVA tenderness Back/Spine/Pelvis: Back: no CVA tenderness Skin: General skin exam: normal color Rashes: no rashes Other: surgical incisions with no sign of infection Neuro: General: patient oriented x3 and CN's II-XI intact bilaterally Cranial nerves: Yes Equal, round and reactive pupils present Speech: normal speech Psych: Appearance: grossly normal Affect: normal affect Judgement: Good judgement present (Psych) DS: Data Data Completed and Pending Pending studies at discharge: Pending at discharge 12/05/20 11:11 Surgical [PTH] Routine Labs on day of discharge: Labs from last 24 hours 12/06/20 12/06/20 05:23 05:23 WBC 8.1 RBC 4.64 Hgb 13.9 L Hct 41.4 L M
== END 2020-12-06 12:45 | disposition home or self-care (01) | DRG 418 ==
LOC: ANHED 20:04 → ANH2MED 22:51
PROVIDERS: Emergency Medicine; Surgery; Admitting Provider Internal Medicine; Emergency Provider Emergency Medicine; PCP Internal Medicine; Visit Provider Physician Assistant
PROC: 0FT44ZZ Resection of Gallbladder, Percutaneous Endoscopic Approach (ICD-10-PCS; CPT 47562; principal; 2020-12-05 10:00)
DX: K80.12 Calculus of gallbladder with acute and chronic cholecystitis without obstruction (principal); N17.9 Acute kidney failure, unspecified; N20.0 Calculus of kidney; I25.10 Atherosclerotic heart disease of native coronary artery without angina pectoris; I48.91 Unspecified atrial fibrillation; I10 Essential (primary) hypertension; E78.5 Hyperlipidemia, unspecified; Z79.01 Long term (current) use of anticoagulants; Z79.899 Other long term (current) drug therapy; Z95.1 Presence of aortocoronary bypass graft
CPT/HCPCS: 36415; 74176; 76705; 80048; 80053; 80076; 81001; 83690; 85025; 85027; 85055; 86850; 86900; 86901; 88304; 93005; 99285; A9270; C1713; J1100; J1650; J2270; J2405; J2543; J2704; J2710; J3010; J7120

== ENCOUNTER 2021-01-09 13:39 | Outpatient (CLI) | payer MEDICARE, SELFPAY ==
--- NOTE | ~2021-01-09 | CT_ITS ---
EXAMINATION: CT abdomen pelvis w con INDICATION: Unspecified abdominal pain, interval cholecystectomy TECHNIQUE: Computed tomographic images of the abdomen and pelvis were obtained after the administrati on of 100 cc of Omnipaque 350 intravenous contrast. The dose-length product (DLP) was 652.40 mGy-cm. Automated exposure control and iterative reconstruction technique were employed. COMPARISON: 12/02/2020 FINDINGS: Minimal dependent atelectasis is present in the lung bases. The heart size is normal. The l iver is diffusely low in attenuation when compared with the spleen, consistent with hepatic steatosis . The spleen, pancreas, and left adrenal gland are normal a punctate calcification in the right adren al gland is consistent with prior infection or trauma. There is small amount of fat stranding in the gallbladder fossa, likely related to recent surgery. The right kidney is unremarkable. Nonobstructing stones of the left kidney measure up to 2 mm. There is calcified atherosclerosis of the aorta and ma ny of the other arteries. No pathologically enlarged abdominal or pelvic lymph nodes are identified. There is no free intraperitoneal gas or evidence of bowel obstruction. There are bilateral inguinal h ernias containing fat. Colonic diverticulosis is present without evidence of diverticulitis. The appe ndix is normal. There is a small volume of pelvic ascites. 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 Severe lumbar spondylosis is noted. IMPRESSION: 1. Changes of interval cholecystectomy. 2. Trace fluid in the pelvis of unclear etiology. Finding could reflect bile leak or other inflammati on. If there is clinical concern for bile leak, recommend nuclear hepatobiliary scan. Reviewed, dictated and finalized at location A. IMPRESSION: 1. Changes of interval cholecystectomy. 2. Trace fluid in the pelvis of unclear etiology. Finding could reflect bile le ak or other inflammation. If there is clinical concern for bile leak, recommend nuclear hepatobiliary scan.
[2021-01-09 14:36] LABS: Estimated Glomerular Filt Rate 52
== END 2021-01-09 13:40 | disposition home or self-care (01) ==
PROVIDERS: PCP Internal Medicine; Visit Provider Surgery
DX: R10.9 Unspecified abdominal pain (principal)
CPT/HCPCS: 74177; Q9967

== ENCOUNTER 2021-01-23 09:04 | Outpatient (CLI) | payer MEDICARE, SELFPAY ==
--- NOTE | ~2021-01-23 | NM_ITS ---
EXAMINATION: NM hepatobiliary wo pharm DATE: 01/23/2021 10:34 INDICATION: Abnormal findings on diagnostic imaging with free fluid in the pelvis post cholecystectom y. Assess for bile leak. COMPARISON: CT dated 01/09/2021 TECHNIQUE: 5.1 mCi Tc-99m mebrofenin (Choletec) was administered intravenously. Scintigraphic images of the abdomen were obtained for one hour. At the 1 hour time point, the patient drank 8 oz Ensure, and imaging was continued for 60 minutes. Gallbladder ejection fraction was calculated by the technol ogist. FINDINGS: There is normal clearance of radiotracer from the blood pool. There is homogeneous tracer u ptake by the liver. Activity progresses to the common bile duct and small bowel by 15 minutes with p rogressive increase of the remainder of the examination. No evident bile leak. IMPRESSION: 1. Normal post cholecystectomy hepatobiliary scan with no bile leak. Reviewed, dictated and finalized at location A.
[2021-01-23 10:53] LABS: Basophils Absolute Auto 0.1 K/mm3 (0.0-0.1); Basophils Percent Auto 0.8 % (0.2-1.2); Eosinophils Absolute Auto 0.1 K/mm3 (0-0.3); Eosinophils Percent Auto 1.8 % (0-4.4); Hematocrit 43.1 % (42.0-52.0); Hemoglobin 14.1 g/dL (14.0-18.0); Immature Granulocyte Absolute 0.05 K/mm3 (0.00-0.031); Immature Granulocyte Percent A 0.7 % (0-0.5); Lymphocytes Absolute Auto 1.04 K/mm3 (0.9-3.2); Lymphocytes Percent Auto 14.5 % (18.3-44.2); Mean Corpuscular HGB Conc 32.7 g/dl (32-36); Mean Corpuscular Hemoglobin 30.3 pg (26-34); Mean Corpuscular Volume 92.7 fl (80-100); Mean Platelet Volume 10.2 fl (7.4-10.4); Monocytes Absolute Auto 0.3 K/mm3 (0.1-0.6); Monocytes Percent Auto 3.8 % (2.6-8.5); Neutrophils Absolute Auto 5.6 K/mm3 (1.3-6.7); Neutrophils Percent Auto 78.4 % (45.5-73.1); Platelet Count Result 160 k/mm3 (150-375); Red Blood Count 4.65 M/mm3 (4.6-6.20); Red Cell Distribution Width 13.9 % (11.5-14.5); White Blood Count 7.2 K/mm3 (4.5-10.0)
[2021-01-23 11:04] LABS: Alanine Aminotransferase 22 U/L (4-50); Albumin Level 4.7 g/dL (3.5-5.1); Alkaline Phosphatase 98 U/L (38-126); Anion Gap 9 mmol/L (8-16); Aspartate Amino Transferase 33 U/L (17-59); Bilirubin,Total 1.3 mg/dL (0.2-1.3); Blood Urea Nitrogen 34 mg/dL (9-20); Carbon Dioxide 27 mmol/L (22-30); Chloride 106 mmol/L (98-107); Estimated Glomerular Filt Rate 48; Glucose 105 mg/dL (65-110); Potassium 4.8 mmol/L (3.4-5.0); Sodium 142 mmol/L (137-145)
== END 2021-01-23 09:05 | disposition home or self-care (01) ==
PROVIDERS: PCP Internal Medicine; Visit Provider Surgery
DX: R10.9 Unspecified abdominal pain (principal); R93.5 Abnormal findings on diagnostic imaging of other abdominal regions, including retroperitoneum; Z90.49 Acquired absence of other specified parts of digestive tract
CPT/HCPCS: 36415; 78226; 80053; 85025; A9537

== ENCOUNTER → 2022-08-01 10:00 | Outpatient (CLI) | payer MEDICARE, SELFPAY ==
--- NOTE | ~2022-08-01 | US_ITS ---
US soft tissue head and neck DATE: 08/01/2022 10:17 INDICATION: Localized swelling, midline submental area for 3 to 4 days TECHNIQUE: Real-time imaging of the submental soft tissues at area of clinical complaint COMPARISON: None FINDINGS: No suspicious mass or cystic lesion is identified in the submental area. Clinical complaint . Very small lymph node is identified in the submental soft tissues but this does not correspond to the location of the patient's complaint. IMPRESSION: No significant abnormality Reviewed, dictated and finalized at Location A. Reviewed, dictated and finalized at location B. IMPRESSION: No significant abnormality
== END ==
PROVIDERS: PCP Family Medicine; Visit Provider Family Medicine
DX: R22.1 Localized swelling, mass and lump, neck (principal)
CPT/HCPCS: 76536

== ENCOUNTER 2023-07-31 14:15 | Outpatient (RCR) | payer MEDICARE, SELFPAY ==
--- NOTE | 2023-07-08 16:41 | PTOPEVAL1 ---
Assessment and note entered by Darlene Trejo, PT Evaluation Information Assessment Status Evaluation Diagnosis pain in left hip Therapy conditions abnormal posture oth. abnormalities of gait and mobility Onset 07/04/23 Subjective Information Reports was laying on the ground fixing his lawnmower. 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 Pt reports has been using heat, lays on the floor with knees bent and lower legs on the couch and will lift himself up off the floor. States had it worked out pretty well Saturday but then it came Received steroid shot intramuscular but doesn't feel like it helped much. 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 States used ot have shoes with a build up but doesn't know where they are. Has been a long time since worn these. Reported Pain Level Pain Score 5: Self Report Additional Pain Score Comments cramps go down to ankle on inside of left leg, denie's tingling or numbness Assessment PT Clinical Summary Pt presents with increased pain to left posterior hip after getting up from concrete floor after fixing his lawnmower. Area of discomfort appears sacroilliac and piriformis related. Today pt demo' s difficulty with ambulation, mobility, abnormal posture with leg length discrepancy, and gait abnormalities. Pt also reports high levels of discomfort. Patient will benefit from physical therapy to educate patient on appropriate exercise and modifications of activities at home, address alignment and strengthening to stabilize alignment and to reduce pain to return to PLOF. Plan of Care Interventions Check Out for Orthotic/Pr,Gait Training,Hot Pack/ Cold Pack,Manual Therapy,Neuro Re-education, Patient/Caregiver Educati,Therapeutic Activities, Therapeutic Exercise,Ultrasound PT Services Indicated Yes Treatment Frequency and 1-2x weekly x 10 visits Duration These treatments will address the objective and functional deficits as defined above. The patient will be advanced safely and appropriately in order for the patient to progress towards his/her prior level of function. Additional exercises will be introduced and as well as a comprehensive home exercise program upon discharge, if needed, ?to ensure carryover of functional gains achieved in the clinic. This treatment plan has been reviewed and agreement upon by the patient.
--- NOTE | 2023-07-08 16:41 | OPREHPOC ---
Outpatient Therapy Plan of Care This is a Multidisciplinary Plan of Care that may contain components documented by all disciplines (PT, OT, and ST.) PT Goal 1 Goal Pt will be independent in HEP Pt will verbalize understanding of diagnosis and prognosis Target Visit 5 PT Problem 2 PT Problem #2 Pain PT Goal 1 Goal Pt will report greatest pain level at 5/10 or less to improve ADLs and activities Target Visit 5 PT Goal 2 Goal Pt will report resolution of pain to return to PLOF Target Visit 10 PT Problem 3 PT Problem #3 Impaired Gait PT Goal 1 Goal Pt will demo equal step length and stance time BLEs to demo improved gait pattern Target Visit 10 PT Problem 4 PT Problem #4 Impaired Range of Motion PT Goal 1 Goal Pt will demo passive ROM LLE to end-range in all planes without pain Target Visit 10
--- NOTE | 2023-08-02 09:53 | PCPTNOTE ---
Patient did not show up for scheduled appointment this date.
--- NOTE | 2023-08-05 14:31 | PCPTNOTE ---
Pt was a NC/NS this date. PT notified of (3) missed treatment. Pt will be discharged at this time. AKS
--- NOTE | 2023-08-06 16:47 | PTOPDC ---
Assessment and note entered by Darlene Trejo, PT Evaluation Information Assessment Status Discharge - Pt Not Present Diagnosis pain in left hip Onset 07/04/23 Assessment PT Clinical Summary Pt attended 4 sessions including the evaluation. He then cancelled last minute and no-call no- showed two appointments despite having multiple print outs and verbal reminders of appointments. Thus patient is being discharged due to non- attendance. Plan of Care PT Services Indicated No
== END 2023-08-14 13:59 | disposition home or self-care (01) ==
LOC: ANHHIPT 14:15
PROVIDERS: PCP Nurse Practitioner Family; Visit Provider Nurse Practitioner Family
DX: M25.552 Pain in left hip (principal)
CPT/HCPCS: 97110; 97112; 97140; 97162